=== PATIENT | male | born 1980 | race Caucasian/White ===

== ENCOUNTER 2022-08-06 12:57 | Emergency (ER) | payer BC ==
[~2022-08-06] VITALS: Ht 177.8 cm; Wt 97.5 kg
[2022-08-06 12:58] VITALS: BP 163/97
[2022-08-06] MEDS ORDERED: CEPH500C PO (13:12)
[2022-08-06] MEDS ORDERED: BACT800T5 PO (13:12)
[2022-08-06 17:30] LABS: BASO # 0.1 10^3/uL (0.0-0.2); BASO % 0.9 % (0.0-1.0); EOS # 0.3 10^3/uL (0.0-0.5); EOS % 3.3 % (0.0-3.0); HEMATOCRIT 44.3 % (42.0-52.0); LYMPH % 26.9 % (24.0-44.0); MEAN CORPUSCULAR HEMOGLOBIN 31.1 pg (27.0-33.0); MEAN CORPUSCULAR HGB CONC 33.9 g/dl (32.0-36.5); MEAN CORPUSCULAR VOLUME 91.7 fl (80.0-96.0); MONO # 1.2 10^3/uL (0.0-0.8); MONO % 15.6 % (2.0-8.0); NEUTROPHILS % 53.2 % (36.0-66.0); PLATELET COUNT, AUTOMATED 262 10^3/uL (150-450); RED BLOOD COUNT 4.83 10^6/uL (4.30-6.10); WHITE BLOOD COUNT 7.5 10^3/uL (4.0-10.0)
[2022-08-06 18:46] LABS: ERYTHROCYTE SEDIMENTATION RATE 16 mm/hr (0-15)
== END 2022-08-06 18:04 | disposition home or self-care (01) ==
LOC: M ED 12:57
DX: L02.224 Furuncle of groin (principal); L03.314 Cellulitis of groin